=== PATIENT | male | born 1985 ===

== ENCOUNTER 2024-08-12 08:32 | Outpatient (REF) | payer OTHER, SELFPAY ==
[2024-08-12 14:59] LABS: HCT 45.6 % (40.0-50.0); HGB 15.8 g/dL (13.5-17.5); MCH 32.8 pg (27.0-33.0); MCHC 34.6 % (32.0-36.0); MCV 95 fL (80-95); MPV 10.8 fL (8.0-11.0); Platelet Count 230 10^3/uL (130-400); RBC 4.82 10^6/uL (4.36-5.78); RDW 11.6 % (11.8-14.1); RDW-SD 39.9 fL
[2024-08-12 15:13] LABS: Hemoglobin A1C 4.8 % (<5.7)
[2024-08-12 15:53] LABS: ALT 22 U/L (16-63); AST 15 U/L (15-37); Albumin 4.6 g/dL (3.4-5.0); Alkaline Phosphatase 89 U/L (46-116); Anion Gap 5.3 mmol/L (3-11); BUN 12 mg/dL (7-18); Bilirubin, Total 0.9 mg/dL (0.2-1.0); CO2 29.7 mmol/L (21.0-32.0); Calcium 9.8 mg/dL (8.5-10.1); Calculated LDL 94 mg/dL (<100); Chloride 106 mmol/L (98-107); Cholesterol 156 mg/dL (<200); Estimated GFR 99.41 (mL/min/1.73m2); Glucose 107 mg/dL (74-106); HDL Cholesterol 53 mg/dL (>or=40); Potassium 4.7 mmol/L (3.5-5.1); Sodium 141 mmol/L (136-145); Total Protein 7.7 g/dL (6.4-8.2); Triglyceride 47 mg/dL (<150)
== END 2024-08-12 08:33 | disposition home or self-care (01) ==
LOC: NCHCN 08:32
PROVIDERS: Visit Provider Physician Assistant
DX: Z00.00 Encounter for general adult medical examination without abnormal findings (principal)
CPT/HCPCS: 80053; 80061; 85027; 83036